=== PATIENT | male | born 1940 | race Caucasian/White ===

== ENCOUNTER 2017-03-30 07:18 | Emergency (ER) | payer OTHER ==
[~2017-03-30] VITALS: Ht 188 cm; Wt 101.2 kg
[~2017-03-30 07:18] MED LIST: ASPIRIN325 MG; ASPIRIN325 MG PO; BRAND FLOMAX0.4 MG; CENTRUM SILVER1 EAC3; CENTRUM TABLET1 EACH PO; Ecotrin PO; FLOMAX0.4 M1 PO; Flomax PO; GLUCOPHAGE500 MG; Glucophage PO; LIPITOR80 MG; LIPITOR80 MG PO; LOPRESSOR12.5 MG PO; METFORMIN HCL500 MG PO; METOPROLOL TART25 MG; NIASPAN750 MG PO; OTC ALLERGY MED PO; PLAVIX75 MG; PLAVIX75 MG PO; PROTONIX40 MG; PROTONIX40 MG PO; TYLENOL325 M1; ZESTORETIC,P1 TABLE1 PO; ZESTORETIC,P1 TABLE3 PO; ZESTORETIC,P1 TABLET; ZESTRIL,PRINIVI10 MG PO
[2017-03-30 09:36] LABS: ADD MIUA? YES; BILIRUBIN NEGATIVE; BLOOD MODERATE; COLOR STRAW ((YELLOW)); GLUCOSE (STRIP) NEGATIVE; KETONES NEGATIVE; LEUKOCYTES NEGATIVE; NITRITE NEGATIVE; PROTEIN (STRIP) NEGATIVE; SPECIFIC GRAVITY 1.006 (1.000-1.030); UROBILINOGEN 0.2 MG/DL (0.2-1.0)
[2017-03-30 09:41] LABS: BACTERIA RARE /HPF; EPITHELIAL CELLS NONE SEEN /HPF; MUCUS TRACE /LPF; WHITE BLOOD CELLS 0-5 /HPF (0-5)
[2017-03-30] MEDS ORDERED: PYRIDIUM100 MG PO (11:39)
[2017-03-30 11:43] VITALS: BP 162/62
== END 2017-03-30 11:43 | disposition home or self-care (01) ==
LOC: EME 07:18
PROVIDERS: Emergency Medicine
PROC: 0T9B7ZZ Drainage of Bladder, Via Natural or Artificial Opening (ICD-10-PCS; principal; 2017-03-30)
DX: R33.9 Retention of urine, unspecified (principal); E11.9 Type 2 diabetes mellitus without complications; E78.5 Hyperlipidemia, unspecified; I10 Essential (primary) hypertension; K21.9 Gastro-esophageal reflux disease without esophagitis; Z95.5 Presence of coronary angioplasty implant and graft; Z96.653 Presence of artificial knee joint, bilateral; Z79.84 Long term (current) use of oral hypoglycemic drugs; Z88.8 Allergy status to other drugs, medicaments and biological substances; Z87.891 Personal history of nicotine dependence
CPT/HCPCS: 81003; 99281; 99284

== ENCOUNTER 2017-03-30 18:52 | Emergency (ER) | payer OTHER ==
[~2017-03-30] VITALS: Ht 188 cm; Wt 106.8 kg
[~2017-03-30 18:52] MED LIST changes: +PYRIDIUM100 MG PO
[2017-03-30 20:01] LABS: ADD MIUA? YES; BILIRUBIN NEGATIVE; BLOOD LARGE; GLUCOSE (STRIP) 50; KETONES NEGATIVE; LEUKOCYTES NEGATIVE; PROTEIN (STRIP) 100; SPECIFIC GRAVITY 1.021 (1.000-1.030)
[2017-03-30 20:18] LABS: BACTERIA NONE SEEN /HPF; EPITHELIAL CELLS NONE SEEN /HPF; GRANULAR CASTS 0-5 /LPF; MUCUS TRACE /LPF; RED BLOOD CELLS TNTC /HPF (0-5); UCUL ADDED? YES
[2017-03-30 20:19] LABS: NITRITE NEGATIVE
[2017-03-30 20:41] VITALS: BP 134/92
== END 2017-03-30 20:41 | disposition home or self-care (01) ==
LOC: EME 18:52
PROVIDERS: Nurse Practitioner Family
DX: N40.1 Benign prostatic hyperplasia with lower urinary tract symptoms (principal); R33.8 Other retention of urine; R31.9 Hematuria, unspecified; I10 Essential (primary) hypertension; E11.9 Type 2 diabetes mellitus without complications; Z79.84 Long term (current) use of oral hypoglycemic drugs; E78.5 Hyperlipidemia, unspecified; K21.9 Gastro-esophageal reflux disease without esophagitis; Z87.891 Personal history of nicotine dependence; Z96.653 Presence of artificial knee joint, bilateral
CPT/HCPCS: 81003; 87086; 99281; 99284